=== PATIENT | male | born 1950 | race Caucasian/White ===

== ENCOUNTER → 2019-01-08 | Day surgery (SDC) | payer MEDICARE ==
[2019-01-04 15:12] LABS: BASOPHILS # (AUTO) 0.1 (0.0-0.1); BASOPHILS % 1.1 % (0.0-1.0); EOSINOPHILS # (AUTO) 0.2 (0.0-0.4); EOSINOPHILS % 3.6 % (0.0-6.0); HEMATOCRIT 45.8 % (38.2-49.6); HEMOGLOBIN 15.3 g/dL (14.0-18.0); LYMPHOCYTES # (AUTO) 1.8 (1.0-3.2); LYMPHOCYTES % 34.7 % (18.0-39.1); MEAN CORPUSCULAR HEMOGLOBIN 30.5 pg (28-32); MEAN CORPUSCULAR HGB CONC 33.4 g/dL (31-35); MEAN CORPUSCULAR VOLUME 91.2 fL (81-99); MONOCYTES # (AUTO) 0.4 (0.2-0.8); MONOCYTES % 7.8 % (4.4-11.3); NEUTROPHILS # (AUTO) 2.8 (2.1-6.9); NEUTROPHILS % 52.4 % (38.7-80.0); PLATELET COUNT 219 x10e3/uL (140-360); RED BLOOD COUNT 5.02 x10e6/uL (4.3-5.7); RED CELL DISTRIBUTION WIDTH 13.2 % (11.7-14.4)
[~2019-01-08] MED LIST: ATORVASTATIN CA10 MG PO; DOXAZOSIN MESYLA2 MG PO; FENTANYL CITRATE/PF 100MCG/2 ML INJ ONE; HYOSCYAMINE 0.125 MG TAB ONE; IBUPROFEN200 MG PO; KETAMINE HCL INJ 50 MG/ML 10 ML VIAL ONE; MIDAZOLAM HCL 2 MG/2 ML VIAL ONE; PROPOFOL IV EMULSION 10 MG/ML 50 ML VIAL ONE; TYLENOL
[2019-01-08 13:00] VITALS: BP 128/93
--- NOTE | 2019-01-08 19:14 | Operative Report ---
DATE OF PROCEDURE: 01/08/2019 SURGEON: Rogelio Capellan MD PROCEDURE: Colonoscopy with polypectomy. INDICATIONS FOR COLONOSCOPY: Colorectal cancer screening. MEDICATIONS: The patient was done under MAC, please see anesthesiologist's note. PROCEDURE IN DETAIL: With the patient in left lateral decubitus position, a flexible fiberoptic Olympus colonoscope was inserted into the rectum with ease and advanced all the way to the cecum. Prep overall was suboptimal with restrained stool in the colon, but visualization was fair. The scope was then withdrawn slowly and one polyp was snared from the ascending colon. Four polyps were snared from the transverse colon and one polypectomy site was hemoclipped x2 and additional polypectomy site was hemoclipped x1. Diverticular disease was noted in the descending and the sigmoid colon. Two polyps were hot biopsied and one polyp was snared from the sigmoid colon. One polyp was snared from the rectum. The scope was then retroflexed into the distal rectum and small internal hemorrhoids were noted, none of which was actively bleeding. The scope was then straightened out, it was subsequently withdrawn, and the patient tolerated the procedure well. IMPRESSION: 1. Suboptimal prep. 2. Ascending colon polyp, snared. 3. Transverse colon polyps x4, 2 polypectomy sites hemoclipped. 4. Diverticulosis. 5. Sigmoid colon polyps x3, 1 snared and 2 hot biopsied. 6. Rectal polyp x1, snared. 7. Internal hemorrhoids, none actively bleeding. PLAN: Follow up histology. Initiate high-fiber, low-fat diet. Initiate high-fiber supplement. The patient might benefit from a followup colonoscopy in 1 year. Rogelio Capellan MD [facility] [place] /[id number] cc: Indio Griffin MD
== END | disposition home or self-care (01) ==
LOC: OR 07:50
PROVIDERS: ATTEND Internal Medicine Gastroenterology
DX: K59.00 Constipation, unspecified (principal); D12.2 Benign neoplasm of ascending colon; D12.3 Benign neoplasm of transverse colon; K62.1 Rectal polyp; K57.30 Diverticulosis of large intestine without perforation or abscess without bleeding; K64.8 Other hemorrhoids; I10 Essential (primary) hypertension; E78.5 Hyperlipidemia, unspecified; Z01.810 Encounter for preprocedural cardiovascular examination; Z01.812 Encounter for preprocedural laboratory examination; Z87.891 Personal history of nicotine dependence
CPT/HCPCS: 36415; 45384; 45385; 85025; 88305; 93005; J2250; J2704; J3010; 45378